=== PATIENT | female | born 1950 | race Caucasian/White ===

== ENCOUNTER 2023-03-28 09:27 | Emergency (ER) | payer OTHER ==
--- OUTSIDE RECORDS SUMMARY | 2023-03-28 09:30 | XMS REPORT | Clinical Summary ---
Author Name Unknown Organization [facility] Address [address] [place] [address] Care Team Providers Care Cloth Calender Name Role Phone Darian Flanagan MD Primary Care Provider Everette Dong MD Unavailable Alejandra Ying MD Unavailable Taylor Saravia MD Unavailable Zoë Juarez Unavailable [phone] Govind Elias MD Unavailable Romain Quiroz AuD Unavailable [phone] Iveth Mejia NP Unavailable Unavailable William Toledo MD Unavailable [phone] Toy Maier Unavailable Tara Winston MD Unavailable Lou Falk MD Unavailable Afshan Herrera [facility] Unavailable Trevor Lovell MD Unavailable Kameron Rosenberg MD Unavailable [phone] Keenan Torres MD Unavailable [phone] Maki Coto VIDEO RECORDER MECHANIC Unavailable [phone] Darian Flanagan MD Unavailable Unavailabl e Corey Keane MD Unavailable [phone] Salome Horvath MD, George Unavailable [phone] Abel Hartley MD Unavailable [phone] Zaire Herrera MD Unavailable [phone] Kelvin Ely DDS Unavailable Viki Dejesus [facility] Unavailable Brittney Zion Lira MD Unavailable [phone] Allergies Active Allergy Reactions Criticality Noted Date Comments Adhesive Tape-Silicones 01/10/2016 Fentanyl Itching 01/10/2016 Reddened arm Iodinated Contrast Media Shortness Of Breath High 01/10/2016 11/30/2018 States too 13hr regime Prednisone 50mg po x 3 and Benadryl 25mg po x 1 for contrast allergy effective for contrast allergy in the past.. States reaction 20 years ago, believe rxn was shortness of breath, denies any reaction with premed Prednisone 50 mg po X3 and Benadryl 50 mg po Medications Medication Sig Dispensed Refills Start Date End Date Status diphenhydrAMINE (BENADRYL) 25 mg capsule Take 50 mg by mouth as needed. 0 Active multivitamin capsule Take 1 capsule by mouth daily. 0 Active guaifenesin (MUCINEX ORAL) Take 1 tablet by mouth as needed. 0 Active naproxen sodium (ALEVE ORAL) Take by mouth as needed. 0 Active magnesium 250 mg tab Take by mouth daily. 0 10/26/2018 Acti ve calcium carbonate-vitamin D3 500 mg - 200 units (1,250 mg calcium carbonate) tablet Take 1 tablet by mouth once. 0 Active collagen, hydrolysate, bovine, (COLLAGEN, HYDR, BOVINE,, BULK, MISC) daily. 0 Active polyethylene glycol (Miralax) 17 gram/dose powder Miralax 17 gram/dose oral powder 1 cap as needed for constipation 0 Active olopatadine (PATANOL) 0.1% ophthalmic solution as needed. 0 Activ e azelastine (ASTELIN) 137 mcg/spray nasal spray as needed. 0 04/02/2019 Active fluoride, sodium, (PREVIDENT) 1.1 % dental creamIndications:Ri sk for dental caries, high [place] teeth with cream twice a day and expectorate (Do not rinse for 30 minutes). 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 Immunizations Name Administration Dates Next Due Pfizer SARS-CoV-2 Vaccination (Purple Cap) 06/17,05/27/2020 Surgical History Surgery Date Site/Laterality Comments CHOLECYSTECTOMY 04/21/2000 - 04/20/2001 HYSTERECTOMY 04/21/1969 - 04/20/1970 SECTION, LOW TRANSVERSE 04/21/1967 - 04/20/1968 CATARACT EXTRACTION W/ INTRAOCULAR LENS IMPLANT 04/21/2004 - 04/20/2005 [place] EGD BALLOON DILATION ESOPHAGUS <30 MM DIAM 03/14/2020 Esophagus/N/A Procedure: DIAGNOSTIC UPPER GASTROINTESTINAL ENDOSCOPY/The patient prefers [place] location for her EGD with possible dilation within 2 weeks please.; Surgeon: Zion Garcia MD; Location: MAIN ENDOSCOPY; Service: GASTROENTEROLOGY [place] EGD TRANSORAL BIOPSY SINGLE/MULTIPLE 03/14/2020 Esophagus/N/A Procedure: UPPER GASTROINTESTINAL ENDOSCOPY OF ESOPHAGUS, STOMACH, AND DUODENUM WITH BIOPSY; Surgeon: Zion Garcia MD; Location: MAIN ENDOSCOPY; Service: GASTROENTEROLOGY Medical History Medical History Date Comments History of radiation therapy History of antineoplastic chemotherapy Squamous cell carcinoma 01/08/2013 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 Sleep apnea was diagnosed 5 years ago but does not use CPAP Family History Medical History Relation Name Comments Breast cancer Sister Relation Name Status Comments Sister Alive Social History Tobacco Use Types Packs/Day Years Used Date Smoking Tobacco: Former Cigarettes 2 12 Q uit: 01/10/1979 Smokeless Tobacco: Never Tobacco Cessation:Counseling Given: No Comments:Quit in 1978 Alcohol Use Standard Drinks/Week Comments No 0 (1 standard drink = 0.6 oz pur e alcohol) Stopped in 1984 Sex and Gender Information Value Date Recorded Sex Assigned at Not on file Gender Identity Not on file Sexual Orientation Not on file Job Start Date Occupation Industry Not on file Not on file Not on file Obstetrics History Plan of Treatment Health Maintenance Due Date Last Done Comments COVID-19 Vaccination ( season) 2022 06/17/2020, 05/27/2020 Advance Directives Documents on File Type Date Recorded Patient Right Of Way Clearer Expl anation Advance Directives: Medical Power of Marketing Automation Specialist 03/09/2013 Historical Care Teams Cloth Calender Relationship Specialty Start Date End Date Darian Flanagan MD PCP - General 06/21/15 Everette White MD [address] [place] [address] [id number] Physician 06/28/15 Alejandra Ying MD [address] [place] [address] 34400 Physician 06/28/15 Taylor Saravia MD [address] [place] [address] 38439 Physician 06/28/15 Zoë Juarez PA [address] [place] [address] 48578 Physician Waist Fitter 06/28/15 Govind Elias MD [address] [place] [address] 52204 Physician 06/28/15 Romain Quiroz AuD [address] [place] [address], [address] [place] [address] Livestock Brands Inspector 06/28/15 Iveth Mejia NP Nurse Practitioner 06/28/15 William Toledo MD [address] [place] [address] 95181 Physician 06/28/15 Toy Maier PA [address] [place] [address] [phone] Physician Waist Fitter 06/28/15 Tara Winston MD [address] [place] [address] 74939 Physician 06/28/15 Lou Falk MD [address] [place] [address] 24347 Physician 06/28/15 Afshan Herrera, [facility] [address] [place] [address] [address] [place] [address] Speech Language Pathologist 06/28/15 Trevor Lovell MD [address] [place] [address] 06859 Physician 06/28/15 Kameron Rosenberg MD [address] [place] [address] 12012 Physician 06/28/15 Keenan Torres MD [address] [place] [address] 53537 Physician 06/28/15 Maki Coto FNP [address] [place] [address] Nurse Practitioner 06/28/15 Darian Flanagan MD Physician 06/28/15 Corey Keane MD [address] [place] [address] 64805 Physician 06/28/15 Sandeep Mcmahon Jr., MD [address] [place] [address] 57473 Physician 06/28/15 Abel Hartley MD [address] [place] [address] 04671 Physician 06/28/15 Zaire Herrera MD [address] [place] [address] 63258 Physician 06/28/15 Kelvin Ely, JACKELINES [address] [place] [address] 23394 Consulting Physician Dental Oncology 02/29/20 Viki Dejesus, [facility] [address] [place] [phone] Speech Language Pathologist Speech Pathology 12/21/19 Zino Garcia MD [address] [place] [address] 724[address] Consulting Physician Gastroenterology, Hepatology and Nutrition 01/03/20
[2023-03-28 10:17] LABS: Absolute Lymphocytes (CBC) 1.4 K/uL (0.7-4.9); Hematocrit 41.8 % (36.0-45.0); Lymphocytes % 40.7 % (15.3-44.8); MCV 93.8 fL (80-100); MPV 7.9 fL (7.6-11.3); Platelets 184 thou/uL (152-406); RBC Red Blood Cell Count 4.46 M/uL (3.86-4.86)
[2023-03-28 10:45] LABS: Albumin 3.7 g/dL (3.4-5.0); Bilirubin Total 0.9 mg/dL (0.2-1.0); Magnesium 2.3 mg/dL (1.6-2.4); Potassium 4.2 mEq/L (3.5-5.1); Protein, Total 7.2 g/dL (6.4-8.2); Thyroid Stimulating Hormone 2.14 uIU/mL (0.358-3.740)
--- NOTE | 2023-03-28 11:37 | EDPHYS ---
Physician Documentation [facility] Name: Sherrie Peters Age: 72 yrs Sex: Female : 1950 Arrival Date: 03/28/2023 Time: : Bed 11 Private MD: ED Physician Dionisio Morris HPI: 03/28 10:15 This 72 yrs old Female presents to ER via Ambulatory with complaints of S/S of Possible rt Stroke - Sent By 10:15 Patient presents to the ED with a resolved numbness to the lips, tongue. She reports rt having slurred speech due to her tongue being numb. She has had multiple episodes over the past 6 months of the same, today lasted the longest at about 5 minutes. Denies any other numbness, weakness. Patient was walking once occurred, denied any gait instability. Denies other acute complaints at this time. Patient states that she has had significant workup for this to include MRI, MRA and carotid imaging studies. She already has a follow-up appointment with neurology scheduled. Denies other acute complaints at this time, symptoms are mild in severity, no other aggravating or alleviating factors. Historical: - Allergies: 09:42 Fentanyl Patch; jj7 09:42 Iodine; jj7 - PMHx: 09:42 TONSIL AND TONGUE CANCER; jj7 - PSHx: 09:42 section; Total abdominal hysterectomy; Appendectomy; Cholecystectomy; jj7 BARIACTRIC; - Immunization history:: Adult Immunizations up to date. - Social history:: Smoking status: Patient denies any tobacco usage or history of. Patient/guardian denies using alcohol, street drugs. - Family history:: not pertinent. ROS: 10:15 Constitutional: Negative for fever, chills, and weight loss, Cardiovascular: Negative rt for chest pain, palpitations, and edema, Respiratory: Negative for shortness of breath, cough, wheezing, and pleuritic chest pain, Abdomen/GI: Negative for abdominal pain, nausea, vomiting, diarrhea, and constipation, MS/Extremity: Negative for injury and deformity, Skin: Negative for injury, rash, and discoloration, Psych: Negative for depression, anxiety, suicide ideation, homicidal ideation, and hallucinations, 10:15 Neuro: Positive for numbness, speech changes, Exam: 10:15 Constitutional: This is a well developed, well nourished patient who is awake, alert, rt and in no acute distress. Head/Face: Normocephalic, atraumatic. Chest/axilla: Normal chest wall appearance and motion. Nontender with no deformity. No lesions are appreciated. Cardiovascular: Regular rate and rhythm with a normal S1 and S2. No gallops, murmurs, or rubs. Normal PMI, no JVD. No pulse deficits. Respiratory: Lungs have equal breath sounds bilaterally, clear to auscultation and percussion. No rales, rhonchi or wheezes noted. No increased work of breathing, no retractions or nasal flaring. Abdomen/GI: Soft, non-tender, with normal bowel sounds. No distension or tympany. No guarding or rebound. No evidence of tenderness throughout. Skin: Warm, dry with normal turgor. Normal color with no rashes, no lesions, and no evidence of cellulitis. MS/ Extremity: Pulses equal, no cyanosis. Neurovascular intact. Full, normal range of motion. Neuro: Awake and alert, GCS 15, oriented to person, place, time, and situation. Cranial nerves II-XII grossly intact. Motor strength 5/5 in all extremities. Sensory grossly intact. Cerebellar exam normal. Normal gait. Psych: Awake, alert, with orientation to person, place and time. Behavior, mood, and affect are within normal limits. Vital Signs: 09:40 BP 147 / 78; Pulse 65; Resp 16; Temp 98.1; Pulse Ox 100% ; Weight 81.65 kg; Height 5 jj7 ft. 3 in. ; Pain 0/10; 10:30 BP 102 / 85; Pulse 63; Resp 18; Pulse Ox 99% ; jj7 11:49 BP 116 / 71; Pulse 62; Resp 16; Pulse Ox 100% ; Pain 0/10; jj7 09:40 Body Mass Index 31.89 (81.65 kg, 160.02 cm) [facility] 09:40 Pain Scale: Adult jj7 11:49 Pain Scale: Adult jj7 MDM: 09:47 Patient medically screened. rt 11:38 Differential diagnosis: Paresthesia, TIA. Data reviewed: vital signs, nurses notes, lab rt test result(s). Test considered but Not performed: CT: Patient had extensive imaging performed recently to include carotid imaging, MRI, MRA. Do not believe that repeat neuroimaging is indicated at this time.. Care significantly affected by the following chronic conditions: Previous history of oropharyngeal cancer. Counseling: I had a detailed discussion with the patient and/or guardian regarding the historical points, exam findings, and any diagnostic results supporting the discharge/admit diagnosis, lab results, the need for outpatient follow up. 03/28 10:03 Order name: CBC with Diff; Complete Time: 10:45 rt 03/28 10:03 Order name: CMP; Complete Time: 10:45 rt 03/28 10:03 Order name: Magnesium; Complete Time: 10:45 rt 03/28 10:03 Order name: TSH; Complete Time: 10:45 rt Administered Medications: No medications were administered Disposition Summary: 03/28/23 11:37 Discharge Ordered Notes: Location: Home rt Problem: an ongoing problem rt Symptoms: have improved rt Condition: Stable rt Diagnosis - Paresthesia of tongue rt Followup: rt - With: Private Physician - When: 5 - 6 days - Reason: Discharge Instructions: - Discharge Summary Sheet rt - Paresthesia rt Forms: - Medication Reconciliation Form rt - Thank You Letter rt - Antibiotic Education rt - Prescription Opioid Use rt - Patient Portal Instructions rt - Leadership Thank You Letter rt Signatures: Dispatcher [employer] Anel White RN RN jjDionisio Escobar MD MD rt Corrections: (The following items were deleted from the chart) 09:44 09:42 Allergies: Fentanyl; jj7 jj7
--- NOTE | 2023-03-28 11:37 | ER ---
Nurse's Notes [facility] Name: Sherrie Peters Age: 72 yrs Sex: Female : 1950 Arrival Date: 03/28/2023 Time: 09:27 Bed 11 Private MD: Diagnosis: Paresthesia of tongue Presentation: 03/28 09:40 Chief complaint: Patient states: LIPS GOT NUMB AND SHE WASN'T ABLE TO MOVE THEM. WAS jj7 NOT ABLE TO SWALLOW. STATES SHE IS GETTING TESTED FOR REOCCURRING STROKE LIKE SYMPTOMS FOR THE LAST 5 MONTHS BY HER DOCTOR. Coronavirus screen: At this time, the client does not indicate any symptoms associated with coronavirus-19. Ebola Screen: No symptoms or risks identified at this time. No acute neurological deficit is noted. Initial Sepsis Screen: Does the patient meet any 2 criteria? No. Patient's initial sepsis screen is negative. Does the patient have a suspected source of infection? No. Patient's initial sepsis screen is negative. Risk Assessment: Do you want to hurt yourself or someone else? Patient reports no desire to harm self or others. 09:40 Method Of Arrival: Ambulatory [facility] 09:40 Acuity: FELIPE 3 jj7 Triage Assessment: 09:42 General: Appears in no apparent distress. comfortable, Behavior is calm, cooperative, jj7 appropriate for age. Pain: Denies pain. Neuro: No deficits noted. Reports difficulty swallowing RESOLVED. 09:42 The onset of the patients symptoms was less than three hours ago. j7 Historical: - Allergies: 09:42 Fentanyl Patch; jj7 09:42 Iodine; jj7 - PMHx: 09:42 TONSIL AND TONGUE CANCER; jj7 - PSHx: 09:42 section; Total abdominal hysterectomy; Appendectomy; Cholecystectomy; jj7 BARIACTRIC; - Immunization history:: Adult Immunizations up to date. - Social history:: Smoking status: Patient denies any tobacco usage or history of. Patient/guardian denies using alcohol, street drugs. - Family history:: not pertinent. Screenin:44 [facility] ED Fall Risk Assessment (Adult) History of falling in the last 3 months, j7 including since admission No falls in past 3 months (0 pts) Confusion or Disorientation No (0 pts) Intoxicated or Sedated No (0 pts) Impaired Gait No (0 pts) Mobility Assist Device Used No (0 pt) Altered Elimination No (0 pt) Score/Fall Risk Level 0 - 2 = Low Risk Oriented to surroundings, Maintained a safe environment. Abuse screen: Denies threats or abuse. Nutritional screening: No deficits noted. Tuberculosis screening: No symptoms or risk factors identified. Assessment: 09:42 Reassessment: see triage assessment. jj7 Vital Signs: 09:40 BP 147 / 78; Pulse 65; Resp 16; Temp 98.1; Pulse Ox 100% ; Weight 81.65 kg; Height 5 jj7 ft. 3 in. ; Pain 0/10; 10:30 BP 102 / 85; Pulse 63; Resp 18; Pulse Ox 99% ; jj7 11:49 BP 116 / 71; Pulse 62; Resp 16; Pulse Ox 100% ; Pain 0/10; jj7 09:40 Body Mass Index 31.89 (81.65 kg, 160.02 cm) jj7 09:40 Pain Scale: Adult jj7 11:49 Pain Scale: Adult jj7 ED Course: 09:30 Patient arrived in ED. mg5 09:39 Anel Winston RN is Primary Nurse. jj7 09:40 Dionisio Morris MD is Attending Physician. rt 09:42 Triage completed. jj7 09:42 Arm band placed on right wrist. Patient placed in an exam room, on a stretcher, on jj7 night monitor, on pulse oximetry. 09:44 Patient has correct armband on for positive identification. Bed in low position. Call jj7 light in reach. Adult w/ patient. 10:12 TSH Sent. jj7 10:12 Magnesium Sent. jj7 10:12 CMP Sent. jj7 10:12 CBC with Diff Sent. jj7 11:49 No provider procedures requiring assistance completed. Patient did not have IV access jj7 during this emergency room visit. Administered Medications: No medications were administered Medication: 11:49 VIS not applicable for this client. jj7 Outcome: 11:37 Discharge ordered by . rt 11:49 Discharged to home ambulatory, with significant other, jj7 11:49 Condition: improved 11:49 Discharge instructions given to patient, Instructed on discharge instructions, follow up and referral plans. Demonstrated understanding of instructions, follow-up care, 11:51 Patient left the ED. jj7 Signatures: Anel Winston RN RN jj7 Dionisio Morris MD MD rt Joanie Gomez mg5 Corrections: (The following items were deleted from the chart) 09:44 09:42 Allergies: Fentanyl; jj7 jj7
[2023-03-28 11:56] VITALS: TEMP 98.1
[2023-03-28 11:58] VITALS: BP 116/71; O2SAT 100
== END 2023-03-28 11:51 | disposition home or self-care (01) ==
LOC: ER 09:27
DX: R20.2 Paresthesia of skin (principal); Z85.810 Personal history of malignant neoplasm of tongue; Z85.89 Personal history of malignant neoplasm of other organs and systems; Z88.5 Allergy status to narcotic agent; Z91.048 Other nonmedicinal substance allergy status
CPT/HCPCS: 36415; 80053; 83735; 84443; 85025; 99283